=== PATIENT | male | born 2000 | race Caucasian/White ===

== ENCOUNTER 2020-07-04 08:21 | Emergency (ER) | payer OTHER, MEDICAID, SELFPAY ==
[2020-07-04 08:31] VITALS: PULSE 89; O2SAT 100
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
[2020-07-04 08:34] VITALS: BP 131/75; PULSE 91; RESP 15; TEMP 36.2; O2SAT 100; BMI 20.7
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
[2020-07-04 09:00] VITALS: BP 122/73; PULSE 81; O2SAT 100
[2020-07-04 09:30] VITALS: BP 124/65; PULSE 79; O2SAT 100
[2020-07-04 10:00] VITALS: BP 103/53; PULSE 74; O2SAT 100
[2020-07-04 10:30] VITALS: BP 107/64; PULSE 75; O2SAT 97
[2020-07-04] MEDS: BACITRACIN OINT 0.9 GM PCKT 5 APPLIC TOP (10:58)
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
== END 2020-07-04 11:15 | disposition home or self-care (01) ==
PROVIDERS: Emergency Provider Emergency Medicine
DX: S06.0X0A Concussion without loss of consciousness, initial encounter (principal); S01.111A Laceration without foreign body of right eyelid and periocular area, initial encounter; S60.511A Abrasion of right hand, initial encounter; F11.99 Opioid use, unspecified with unspecified opioid-induced disorder; Y04.2XXA Assault by strike against or bumped into by another person, initial encounter
CPT/HCPCS: 70450; 70486; 71045; 72125; 73130; 99283; 99284

== ENCOUNTER 2022-11-11 12:36 | Emergency (ER) | payer OTHER, MEDICAID, SELFPAY ==
[2022-11-11 13:36] VITALS: BP 133/63; PULSE 86; RESP 19; TEMP 36.3; O2SAT 97; BMI 25.1
== END 2022-11-11 20:14 | disposition left against medical advice (07) ==
PROVIDERS: Emergency Provider Emergency Medicine
CPT/HCPCS: 99281